=== PATIENT | male | born 1975 | race Caucasian/White ===

== ENCOUNTER → 2017-02-17 | Day surgery (SDC) | payer OTHER | END | disposition home or self-care (01) | LOC: FIMAGING 14:28 | PROVIDERS: ATTEND Internal Medicine Infectious Disease | PROC: 02HV33Z Insertion of Infusion Device into Superior Vena Cava, Percutaneous Approach (ICD-10-PCS; principal; 2017-02-17) | DX: T81.4XXA Infection following a procedure, initial encounter (principal); Z79.2 Long term (current) use of antibiotics | CPT/HCPCS: 36569; 77001; C1751 ==